=== PATIENT | female | born 1990 ===

== ENCOUNTER 2016-10-01 02:05 | Inpatient (IN) ==
--- NOTE | 2016-10-01 02:03 | OB/GYN History & Physical ---
Date of Encounter: 10/01/16 Time of Encounter: 02:00 Assessment and Plan (1) labor in third trimester without delivery Current visit: Yes Status: Acute @ 35w 4d SROM at approximately midnight. Pooling on sterile speculum exam. Nitrizine (+) Ferning (+) Cervix 4cm dilation, 100% effaced, +1 station, posterior position (Per nurse fireworks assembler Rina Galindo). GBS unknown; will empirically treat. Will manage expectantly. Patient requests epidural. CBC pending. (2) 35 weeks gestation of Current visit: Yes Status: Acute as above. (3) SROM (spontaneous rupture of membranes) Current visit: Yes Status: Acute as above History of Present Illness Chief complaint: contractions, vaginal leaking HPI: Ms. Chase is a 26 year old female presents from home with concerns re: contractions and vaginal leaking. at 35w 4d. Patient awoke at midnight noting her liner was pink tinged and she, "kept peeing herself." Contractions were painful enough she had difficulty speaking on the phone prior to arrival. OB: Dr. Rao; transfer of care from [place]. Blood type: O- Rh: (-) GBS: unknown Rubella (-) Varicella: unknown Hep B: reactive HIV: (-) Past Med Surg Social Fam HX - Past Medical History Medical history: no medical history, non-contributory Psychiatric history: no psych history - Past Surgical History Surgical History: no surgical history, non-contributory - Social History Smoking Status: Never smoker Smokeless Tobacco Status: No Alcohol use: none Drug use: none - Family History Grandmother Family Member Ethnicity: Non- Living Status: Still Living Hx Family Endocrine Disorder: Yes (dm) Obstetrical History - Pregnancies : 1 Para: 0 Term: 0 : 0 Ab's: 0 Livin Medications and Allergies Daily Combo Pack 1 tab PO DAILY 10/01/16 [History] Allergies peanut oil Allergy (Verified 10/01/16 02:50) Hives shellfish derived Allergy (Verified 10/01/16 02:50) Hives codeine Adverse Reaction (Verified 10/01/16 01:28) Nausea Review of System OB - Cardiovascular Cardiovascular: no chest pain, no edema - Respiratory Respiratory: no cough - Gastrointestinal Gastrointestinal: abdominal pain - Genitourinary Genitourinary: vaginal discharge, no dysuria, no urinary incontinence, no vaginal odor Exam - Constitutional Constitutional: well developed, well nourished, obese - HEENT HEENT: Normocephaly, Mucus Membranes Moist - Neck Neck exam: normal inspection, supple - Lungs Respiratory exam: CTAB - Cardiovascular Cardiovascular exam: RRR, +S1, +S2 - Abdomen Abdomen: Present: bowel sounds normal, gravid, non tender - Extremities Extremities exam: normal capillary refill, normal inspection, warm, radial pulses palpable and symetrical - Cervix Dilation: 4 Effacement: 100 Station: +1 - Uterus Uterus exam: Present: enlarged Results Result Diagrams: 10/01/16 02:21 All other labs normal. - VTE Reasons for not Prescribing Prophylaxis: Treatment not Indicated - Low risk for VTE
[~2016-10-01 02:05] MED LIST: Famotidine 20 MG/2 ML VIAL IVP PRN; Naloxone 0.4 MG/ML INJ IVP PRN; Ondansetron 4 MG/2 ML VIAL IVP PRN; Penicillin G Potassium 5,000,000 UNIT in D5% in Water (Mini-Bag+) 100 ML IVPB ONE; Ringers Solution, Lactated 1,000 ML IVC SCH
[2016-10-01 02:08] LABS: Bilirubin,Urine Negative (Negative); Blood,Urine Large (Negative); Clarity,Urine Cloudy (Clear); Color,Urine Yellow (Yellow); Glucose,Urine (UA) Normal (Normal); Ketones,Urine Negative (Negative); Leukocyte Esterase,Urine Negative (Negative); Nitrite,Urine Negative (Negative); PH,Urine 6.5 pH Units (5.0-8.0); Protein,Urine Negative (Neg-Trace); Specific Gravity,Urine 1.009 (1.010-1.025); Urobilinogen,Urine Normal (Normal)
[2016-10-01 02:11] LABS: Bacteria,Urine None Seen per hpf (None-Few); Hyaline Casts,Urine None Seen per lpf (None-Few); Squamous Epithelial Cell,Urine Many per lpf (None-Few); WBC,Urine 0-3 per hpf (0-3)
[2016-10-01 02:28] LABS: Basophils # 0.1 K/mcL (0.0-0.2); Basophils % 0.3 %; Eosinophils # 0.2 K/mcL (0.0-0.6); Eosinophils % 1.1 %; Hematocrit 33.7 % (35.3-44.9); Hemoglobin 11.1 g/dL (11.5-15.4); Immature Granulocytes % 0.7 % (0-4); Immature Platelets 3.8 % (1.1-6.1); Lymphocytes # 2.1 K/mcL (0.6-4.6); Lymphocytes % 13.6 %; Mean Corpuscular HGB Conc 32.9 g/dL (31.6-35.5); Mean Corpuscular Hemoglobin 25.1 pg (28.0-33.3); Mean Corpuscular Volume 76.1 fL (83.0-100.0); Mean Platelet Volume 9.8 fL (9.4-12.4); Monocytes # 1.4 K/mcL (0.0-1.3); Monocytes % 9.3 %; Neutrophils # 11.4 K/mcL (1.6-8.9); Platelet Count 287 K/mcL (140-400); Red Blood Count 4.43 M/mcL (3.82-4.97); Red Cell Distribution Width 14.5 % (11.5-14.5)
[2016-10-01] MEDS ORDERED: *HR* Nalbuphine 20 MG/ML AMPUL IVP PRN (02:55)
--- NOTE | 2016-10-01 03:30 | OB Labor Progress Note ---
Date of Encounter: 10/01/16 Time of Encounter: 03:28 Labor Progress Note - Subjective Subjective: Patient in bed breathing through contractions. States she is doing ok with pain and requesting epidural. - Cervix Cervix: 5/100/+1 mid-position - Heart Tones Heart Tones: baseline 135 with moderate variablility and 15x15 accels present - [place]: Contractions every 4-8 minutes, moderate to palpation, and 90-120 seconds in length. Uterus palpates soft between contractions - Interventions Interventions: Cervical exam completed, position changed to right side, discussed iv pain medication vs epidural for pain control. - Plan Plan: Expectant management GBS prophylaxis with PCN Epidural requested Expect vaginal delivery Discussed updates with Dr Dyson.
[2016-10-01] MEDS ORDERED: Bupivacaine-MPF 0.25% 10 ML VIAL ONE (04:13)
[2016-10-01] MEDS ORDERED: *HR* FentaNYL (PF) 100 MCG/2 ML VIAL ONE (04:13)
[2016-10-01] MEDS ORDERED: Epidural Premix (fent/bupiv) 110 ML EP ONE ×2 (04:14→11:46)
[2016-10-01] MEDS ORDERED: Bupivacaine-MPF 0.25% 10 ML VIAL EP ONE (04:41)
[2016-10-01] MEDS ORDERED: *HR* FentaNYL (PF) 100 MCG/2 ML VIAL EP ONE (04:41)
--- NOTE | 2016-10-01 04:44 | Anesthesia Evaluation PreOp ---
Date of Encounter: 10/01/16 Time of Encounter: 03:50 - Past History Planned Operation: MARY Cardiac History: Denies any Significant Hx Pulmonary History: Denies Any Significant HX, Other (seasonal allergies) FRICTION WELDING MACHINE OPERATOR History: Denies Any Significant HX Other Medical History: Denies Any Significant HX Anesthesia History: No Prior Anesthetic Complications (has never had general anesthesia) : Yes Alcohol Use: none Drug use: none Medications and Allergies Daily Combo Pack 1 tab PO DAILY 10/01/16 [History] Allergies peanut oil Allergy (Verified 10/01/16 02:50) Hives shellfish derived Allergy (Verified 10/01/16 02:50) Hives codeine Adverse Reaction (Verified 10/01/16 01:28) Nausea - Meds/Allergy Pre-op Review Medications Reviewed: Yes Allergies Reviewed: Yes Beta Blockers on Current Med List: No Anesthesia Results - Labs 10/01/16 02:21 Anesthesia Exam VSS and FHTs stabe Height: 5'2" Weight: 97 kg NPO (# of Hours): 4 Pain Scale: 5 Pain Scale Used: Numeric (1 - 10) - HEENT Pupil (Motor): Pupils equal Mallampati: III Teeth: Normal Oral Opening: Greater than 3 - FRICTION WELDING MACHINE OPERATOR LOC: Oriented FRICTION WELDING MACHINE OPERATOR Motor: Normal RUE, Normal LUE, Normal RLE, Normal LLE, Normal Face FRICTION WELDING MACHINE OPERATOR Sensory: Normal: RUE, LUE, RLE, LLE, Face - Cardiac Rhythm: Regular - Pulmonary Breath Sounds: bilateral Clear Respiratory Effort: Symmetrical Anesthesia Assess/Plan ASA Score: 2 Modified [place] Scale for Level of Consciousness: Cooperative, oriented, and tranquil Anesthetic Plan: Regional Monitoring Plan: Standard Monitors
[2016-10-01] MEDS ORDERED: Epidural Premix (fent/bupiv) 110 ML EP SCH (04:45)
--- NOTE | 2016-10-01 04:48 | Anesthesia Procedures ---
Date of Encounter: 10/01/16 Time of Encounter: 15:00 Procedures: Anesthesia - Epidural/Spinal Patient ID/Chart reviewed: Yes Patient examined: Yes OB Eval: Gestational age: 35 OB Eval: : 1 OB Eval: Hx Para: 0 OB Eval: Dilated at (cm): 5 OB Eval: Contractions: Non-stressed pattern Consent Obtained: Yes Supplemental Oxygen: None/Room Air Site Prep: Aseptic Technique, Sterile prep and drape, Povidone-Iodine 1% Patient position: upright Local Anesthetic: Lidocaine 1% Amount of Local Anesthetic used: 3 Touhy Needle Gauge: 18 Touhy Needle Depth (cm): 5 Catheter Depth at Skin (cm): 18 Test Dose (1.5% Lido + Epi): Volume given (mls): 3 Test Dose Result: Negative Loading Dose: 0.25% Marcaine (mls): 8 Loading Dose: Fentanyl (mcg): 100 Loading Dose Administered: Thru Catheter Infusion Med: 0.125% Bupivacaine w/ 2 mcg/ml Fentanyl Infusion Rate (mls/hr): [address]: Tegaderm Interspace Used: L3-L4 Loss of Resistance (ART): Yes Blood: No CSF: No Paresthesia: No Vitals + FHT's: vss and FHTs stable throughout
[2016-10-01] MEDS: Penicillin G Potassium 2,500,000 UNIT in D5% in Water 100 ML IVPB SCH ×2 (06:43→14:32)
[2016-10-01] MEDS ORDERED: Oxytocin 20 units/ LR 1000 mL 20 UNIT/1,000 ML BAG IVC ONE (08:44)
[2016-10-01] MEDS ORDERED: *HR* Ropivacaine/PF 0.2% 10 ML AMPUL ONE (14:18)
[2016-10-01] MEDS ORDERED: Metoclopramide 10 MG/2 ML VIAL IVP ONE (15:56)
[2016-10-01] MEDS ORDERED: Lidocaine/EPI 1:200k 2% PF 20 ML VIAL ONE (16:45)
[2016-10-01] MEDS ORDERED: Lidocaine 1% 20 ML MDV ONE (17:39)
--- NOTE | 2016-10-01 19:14 | OB/GYN Procedure Note ---
Delivery - Delivery Date: 10/01/16 Provider: Jonah Irvin Intrapartum events: none Delivery augmentation: pitocin Delivery monitor: external FHT, external uterine Anesthesia: local, epidural Estimated Blood Loss: 400 - (s) Infant A Infant Delivery Date: 10/01/16 Delivery Time: 17:29 Presentation: vertex Position: ANABELLA Gender: Male Viability: Viable Weight Gram: 2.8 kg at 1 minute: 5 at 5 mins: 9 Shoulder Dystocia: not encountered Specimens collected: cord blood Placenta: spontaneous Cord: 3 umbilical vessels - Repair Episiotomy: none Laceration Description: Perineal - 3rd Degree - Complications Delivery complications: none - Disposition Mom disposition: stable in LDR disposition: stable in LDR - Comments Comments: Pt is s/p of liveborn male 6lb 2oz infant from ANABELLA presentation. 3rd degree laceration was repaired with 2-0 and 3-0 vicryl under local and epidural anesthesia. EBL 350 cc.
[2016-10-01] MEDS ORDERED: *HR* Morphine Sulfate/PF 5 MG/10 ML AMPUL ONE (19:26)
--- NOTE | 2016-10-01 19:51 | Anesthesia Progress Note ---
Date of Encounter: 10/01/16 Time of Encounter: 19:28 Anesthesia Note - Note Note: 10/01/16 19:[address] Irvin decision to give patient Morphine via epidural for post-op pain control d/t grade 3 Lac with delivery. patient given 1.5mg PF Morphine after neg aspiration.
[2016-10-01] MEDS ORDERED: Measles/Mumps/Rubella Vacc 0.5 ML VIAL SQ PRN (20:14)
[2016-10-01] MEDS ORDERED: Acetaminophen 325 MG TABLET PO PRN (20:14)
[2016-10-01] MEDS ORDERED: Oxytocin 20 units/ LR 1000 mL 20 UNIT/1,000 ML BAG IVC SCH (20:14)
[2016-10-02] MEDS: Ibuprofen 600 MG TABLET PO PRN ×3 (00:13→23:18)
[2016-10-02 02:42] LABS: Basophils % 0.2 %; Eosinophils # 0.1 K/mcL (0.0-0.6); Eosinophils % 0.2 %; Hematocrit 26.9 % (35.3-44.9); Immature Granulocytes % 0.7 % (0-4); Immature Platelets 3.3 % (1.1-6.1); Lymphocytes % 9.3 %; Mean Corpuscular HGB Conc 33.1 g/dL (31.6-35.5); Mean Corpuscular Hemoglobin 25.3 pg (28.0-33.3); Mean Corpuscular Volume 76.4 fL (83.0-100.0); Mean Platelet Volume 10.1 fL (9.4-12.4); Monocytes % 9.3 %; Neutrophils # 17.1 K/mcL (1.6-8.9); Platelet Count 246 K/mcL (140-400); Red Blood Count 3.52 M/mcL (3.82-4.97); Red Cell Distribution Width 14.6 % (11.5-14.5); Segmented Neutrophils % 80.3 %
[2016-10-02 02:43] LABS: Hemoglobin 8.9 g/dL (11.5-15.4)
--- NOTE | 2016-10-02 08:42 | OB/GYN Progress Note ---
Date of Encounter: 10/02/16 Time of Encounter: 08:40 - Assessment and Plan (1) Status post vaginal delivery Current Visit: Yes Status: Acute (2) delivery Current Visit: Yes Status: Acute 35 weeks. Patient in nursery (3) Acute urinary retention Current Visit: Yes Status: Acute Mireles in place. Plan on removal at 1400 today. PVR with bladder scan to determine whether Mireles may remain out Subjective - Subjective Principal diagnosis: PPD1 Interval history: The pt was unable to void after delivery. Mireles recently placed with 900cc returned. Pt comfortable with Mireles. Normal lochia. Baby in nursery. Patient breast-feeding and currently pumping Patient reports: appetite normal, pain well controlled, ambulating normally : in NICU Objective - Latest Vital Signs Latest vital signs: Vital Signs Temp Pulse Resp BP Pulse Ox 10/02/16 07:30 97.8 F 93 16 105/68 10/02/16 02:36 98.9 F 97 16 100/63 95 10/01/16 22:00 98.5 F 104 14 121/63 97 10/01/16 21:00 98.6 F 112 20 136/64 97 10/01/16 20:15 98.5 F 102 14 122/77 96 Intake and Output 10/01/16 10/02/16 10/02/16 23:59 07:59 15:59 Intake Total 500 / 500 1000 / 1000 600 / 600 Output Total 1900 / 1900 900 / 900 Balance -1400 / -1400 100 / 100 600 / 600 Intake: IV Fluids 1000 / 1000 Pitocin 20 unit In 1,000 1000 / 1000 ml @ 125 mls/hr IVC .Q8H [facility] Rx#:[id number] Oral 500 / 500 600 / 600 Output: Urine 900 / 900 2-way Urethral 900 / 900 Estimated Blood Loss 400 / 400 Straight Cath 1500 / 1500 Other: Weight 94 kg 94.1 kg Patient Weight 10/02/16 23:59 Weight 94.1 kg - Exam Extremities: Present: normal. Absent: tenderness, edema Abdomen: Present: normal appearance, soft. Absent: tenderness Uterus: Present: normal, firm Uterus Position: 1 Finger Below Umbilicus, Midline - Labs Labs: Laboratory Results - last 24 hr 10/01/16 10/02/16 18:19 02:22 WBC 21.4 H RBC 3.52 L Hgb 8.9 L D Hct 26.9 L MCV 76.4 L MCH 25.3 L MCHC 33.1 RDW 14.6 H Plt Count 246 MPV 10.1 Immature Gran % 0.7 Seg Neutrophils % 80.3 Lymphocytes % 9.3 Monocytes % 9.3 Eosinophils % 0.2 Basophils % 0.2 Neutrophils # 17.1 H Lymphocytes # 2.0 Monocytes # 2.0 H Eosinophils # 0.1 Basophils # 0.0 Immature Plt Fraction 3.3 Baby's Blood Type A RH POSITIVE Mother's Blood Type O RH NEGATIVE Rhogam Indicated YES - Allied health notes Allied health notes reviewed: nursing
[2016-10-02] MEDS: Prenatal Vit/FA 1 EACH TABLET PO SCH (09:49)
[2016-10-02] MEDS: Rho Immune Globulin 1,500 UNIT SYRINGE IM PRN ×2 (16:30→16:38)
[2016-10-03 08:15] VITALS: BP 105/70
--- NOTE | 2016-10-03 08:15 | Discharge Summary ---
Date of Encounter: 10/03/16 Time of Encounter: 08:13 - Discharge Diagnosis (1) Status post vaginal delivery Priority: Primary Status: Acute Comments: Patient delivered via spontaneous vaginal delivery at 35w 4d, with epidural and pitocin augmentation. complication of urinary retention; now resolved - patient is voiding without difficulty. Her appetite is intermittent however she is eating well. No BM yet however is passing flatus. Her only question is in regards to speaking with a security system sales consultant - consult placed previously, nursing notified. Baby is doing well. Vitals stable; afebrile. Hb/Hct stable. [place] mild. Safe for discharge home. (2) Acute urinary retention Priority: Secondary Status: Resolved Comments: as above (3) delivery Priority: Secondary Status: Resolved Comments: as above (4) SROM (spontaneous rupture of membranes) Priority: Secondary Status: Resolved Comments: as above - Discharge Medications Prescriptions: Ibuprofen [Motrin] 600 mg PO Q6HR PRN #40 tablet PRN Reason: Cramping Breast Pump [BREAST PUMP] 1 each .ROUTE AD #1 each Ferrous Sulfate 325 mg PO BID #60 tablet Home Medications: Daily Combo Pack 1 tab PO DAILY 10/01/16 [History] Acetaminophen [Tylenol] 650 mg PO Q6HR PRN #0 tablet 10/03/16 [Rx] Breast Pump [BREAST PUMP] 1 each .ROUTE AD #1 each 10/03/16 [Rx] Docusate [Colace] 100 mg PO BID capsule 10/03/16 [Rx] Ferrous Sulfate 325 mg PO BID #60 tablet 10/03/16 [Rx] Ibuprofen [Motrin] 600 mg PO Q6HR PRN #40 tablet 10/03/16 [Rx] Vit/FA 1 each PO DAILY tablet 10/03/16 [Rx] Allergies/Adverse Reactions: Allergies peanut oil Allergy (Verified 10/01/16 02:50) Hives shellfish derived Allergy (Verified 10/01/16 02:50) Hives codeine Adverse Reaction (Verified 10/01/16 01:28) Nausea Data Procedures and tests throughout hospitalization: Laboratory Tests 10/01/16 10/01/16 10/01/16 02:02 02:21 18:19 WBC 15.3 H RBC 4.43 Hgb 11.1 L Hct 33.7 L MCV 76.1 L MCH 25.1 L MCHC 32.9 RDW 14.5 Plt Count 287 MPV 9.8 Immature Gran % 0.7 Seg Neutrophils % 75.0 Lymphocytes % 13.6 Monocytes % 9.3 Eosinophils % 1.1 Basophils % 0.3 Neutrophils # 11.4 H Lymphocytes # 2.1 Monocytes # 1.4 H Eosinophils # 0.2 Basophils # 0.1 Immature Plt Fraction 3.8 Urine Color Yellow Urine Clarity Cloudy A Urine pH 6.5 Ur Specific Ada 1.009 L Urine Protein Negative Urine Glucose (UA) Normal Urine Ketones Negative Urine Blood Large H Urine Nitrite Negative Urine Bilirubin Negative Urine Urobilinogen Normal Ur Leukocyte Esterase Negative Urine Microscopic RBC 5-15 H Urine Microscopic WBC 0-3 Ur Squamous Epith Cells Many H Urine Bacteria None Seen Hyaline Casts None Seen Ur Culture Indicated? NO Screen NEGATIVE Baby's Blood Type A RH POSITIVE Mother's Blood Type O RH NEGATIVE Rhogam Indicated YES Rhogam Req for Mother 1 10/02/16 02:22 WBC 21.4 H RBC 3.52 L Hgb 8.9 L D Hct 26.9 L MCV 76.4 L MCH 25.3 L MCHC 33.1 RDW 14.6 H Plt Count 246 MPV 10.1 Immature Gran % 0.7 Seg Neutrophils % 80.3 Lymphocytes % 9.3 Monocytes % 9.3 Eosinophils % 0.2 Basophils % 0.2 Neutrophils # 17.1 H Lymphocytes # 2.0 Monocytes # 2.0 H Eosinophils # 0.1 Basophils # 0.0 Immature Plt Fraction 3.3 Urine Color Urine Clarity Urine pH Ur Specific Ada Urine Protein Urine Glucose (UA) Urine Ketones Urine Blood Urine Nitrite Urine Bilirubin Urine Urobilinogen Ur Leukocyte Esterase Urine Microscopic RBC Urine Microscopic WBC Ur Squamous Epith Cells Urine Bacteria Hyaline Casts Ur Culture Indicated? Screen Baby's Blood Type Mother's Blood Type Rhogam Indicated Rhogam Req for Mother Labs on day of discharge: Labs from last 24 hours 10/01/16 18:19 Screen NEGATIVE Rhogam Req for Mother 1 Date of admission: 10/01/16 02:05 Primary care physician: Mala Petersen Consults: 10/01/16 20:14 Consult to Housecleaner Floor [CONS] Routine Comment: Vaginal delivery, consult needed Discharging clinician: Marko Tuttle Anticipated date of discharge: 10/03/16 - Patient Status Disposition: Home, Self-Care Condition: Good Functional capacity at discharge: independent ambulation Overall status at discharge: patient is progressing back to baseline - Discharge Instructions Follow Up With: Gill Rao MD [Partnered Physician] - (October 29, 2016 @ 10:00 am) Jeanne Courtney CNP [Primary Care Provider] - - Diet and Activity Activity: increase activity as tolerated, resume usual activities as tolerated Diet: advance to your usual diet Hospital Course Reason for admission: labor, rupture of membranes Delivery: Episiotomy: none Laceration: 3rd degree Other procedures: none complications: other (urinary retention - resolved) Ophiem baby: male Hospital course: Mrs. Chase arrived 10/01 with SROM, nitrizine (+), ferning (+), pooling (+) at 4cm dilation. GBS was unknown; empirically treated for GBS. Viable male born 10/01. 3rd degree laceration fepaired under local and epidural anesthesia. EBL 350cm. Patient had post urinary retention, mccauley placed and subsequently removed yesterday afternoon. Patient able to void without difficulty. She is up, ambulating, dieting well, voiding well, passing flatus. Vitals stable; afebrile. Hb 8.6. consult ordered. Will discharge patient home today with follow-up recommended in 4 weeks. Time Attestation: Total time spent providing and/or coordinating discharge services: Time Spent: Less than 30 minutes Specific discharge activities: Resume activities as tolerated. Follow-up with Dr. Rao in 4 weeks. Exam - Constitutional Vitals: Temp Pulse Resp BP Pulse Ox 97.8 F 87 14 107/58 97 10/02/16 19:40 10/02/16 19:40 10/03/16 08:07 10/02/16 19:40 10/02/16 19:40 General appearance IM: A&O X 3, no acute distress, answers questions appropriately - Respiratory Respiratory exam: Present: CTAB - Cardiovascular Cardiovascular exam IM: Present: RRR, +S1, +S2, systolic murmur (known murmor) - GI/Abdominal GI/Abdominal exam IM: normal bowel sounds, soft, no peritoneal signs - Uterine Tone: Firm Uterus Position: 4 Fingers Below Umbilicus - Extremities Exam Extremities exam IM: Present: normal inspection, warm. Absent: pedal edema
[2016-10-03] MEDS: Ibuprofen 600 MG TABLET PO PRN (08:22)
[2016-10-03] MEDS: Prenatal Vit/FA 1 EACH TABLET PO SCH (08:22)
== END 2016-10-03 09:31 | disposition home or self-care (01) | DRG 774 ==
LOC: 1NENULAB → 1NENUOBS 20:13
PROVIDERS: ADMIT Obstetrics & Gynecology; ATTEND Obstetrics & Gynecology